=== PATIENT | female | born 1990 | race Caucasian/White ===

== ENCOUNTER 2023-12-24 08:00 | Inpatient (IN) | payer OTHER ==
[2023-12-24] MEDS: LACTATED RINGERS SOLUTION 1,000 ML/1,000 ML INFUS.BAG IV SCH (09:10)
[2023-12-24] MEDS ORDERED: OXYTOCIN 30 UNITS in 0.9% NS 30 UNIT/500 ML INFUS.BAG IVPB ONE (09:34)
[2023-12-24] MEDS: OXYTOCIN 30 UNITS in 0.9% NS 30 UNIT/500 ML INFUS.BAG IVPB SCH (09:40)
[2023-12-24 09:45] LABS: BASO % 0.1 % (0-2.0); EOS % 0.3 % (0-4.5); HEMATOCRIT 33.3 % (32.4-45.2); HEMOGLOBIN 11.2 GM/dL (10.7-15.3); LYMPH % 16.4 % (8-40); MCH 28.5 pg (25.7-33.7); MCHC 33.7 g/dl (32.0-36.0); MEAN CELL VOLUME 84.5 fl (80-96); MEAN PLT VOLUME 7.9 fl (7.5-11.1); MONO % 7.3 % (3.8-10.2); NEUT % 75.9 % (42.8-82.8); PLATELET COUNT 163 10^3/uL (134-434); RBC 3.94 M/mm3 (3.60-5.2); RDW 14.1 % (11.6-15.6); WHITE BLOOD COUNT 8.8 K/mm3 (4.0-10.0)
[2023-12-24 09:51] LABS: INR 0.93 (0.83-1.09); PROTHROMBIN TIME (PATIENT) 10.5 SEC (9.7-13.0)
[2023-12-24 09:54] LABS: ACTIVATED PTT 28.1 SECONDS (25.2-36.5)
[2023-12-24 10:17] VITALS: BMI 37.4
[2023-12-24 10:32] LABS: CALCIUM 9.1 mg/dL (8.5-10.1)
[2023-12-24 10:33] LABS: ALBUMIN 2.7 g/dl (3.4-5.0); BLOOD UREA NITROGEN 12.3 mg/dL (7-18)
[2023-12-24 10:36] LABS: CREATININE 0.5 mg/dL (0.55-1.3)
[2023-12-24 10:38] LABS: BILIRUBIN,TOTAL 0.3 mg/dL (0.2-1); TOT PROT 5.9 g/dl (6.4-8.2)
[2023-12-24] MEDS ORDERED: FENTANYL/BUPIVACAINE/NS/PF - PCEA - 50 ML DISP.SYRIN EP ONE (12:42)
[2023-12-24] MEDS ORDERED: LIDO 2%/EPI 1:200000 PRESRVFRE (20 ML SDVIAL) ONE (12:49)
[2023-12-24] MEDS ORDERED: BUPIVACAINE HCL/PF 0.25% (2.5MG/ML) 10 ML VIAL ONE (12:49)
[2023-12-24] MEDS: FENTANYL/BUPIVACAINE/NS/PF - PCEA - 50 ML DISP.SYRIN EP SCH (13:15)
[2023-12-24] MEDS ORDERED: NALOXONE HCL 0.4 MG/ML VIAL IVPUSH PRN (13:47)
[2023-12-24] MEDS ORDERED: OXYTOCIN 20 UNITS in 0.9% NS 20 UNIT/1,000 ML INFUS.BAG IV ONE (15:00)
[2023-12-24] MEDS: OXYTOCIN 20 UNITS in 0.9% NS 20 UNIT/1,000 ML INFUS.BAG IV SCH (15:31)
[2023-12-24] MEDS ORDERED: METHYLERGONOVINE MALEATE 0.2 MG/1 ML AMP IM PRN (15:50)
[2023-12-24] MEDS ORDERED: BISACODYL 10 MG SUPP.RECT RC PRN (15:50)
[2023-12-24] MEDS ORDERED: oxyCODONE HCL 5 MG TABLET PO PRN (15:50)
[2023-12-24] MEDS ORDERED: BENZOCAINE 28 GM HEMORRHOIDAL OINTMENT TP PRN (15:50)
[2023-12-24 16:01] LABS: CORD BASE EXCESS -4.1 mmol/L (0-2); CORD HCO3 21.4 mmHg (20-29); CORD PCO2 40.6 mmHg (30-78); CORD pH 7.339 (7.14-7.44)
[2023-12-24 16:03] LABS: CORD BASE EXCESS -6.4 mmol/L (0-2); CORD HCO3 22.9 mmHg (20-29); CORD pH 7.193 (7.14-7.44)
[2023-12-24] MEDS: INSULIN ASPART SLIDING SCALE (NOVOLOG) 1 VIAL SQ SCH (16:48)
[2023-12-24] MEDS: IBUPROFEN 600 MG TABLET (FP) PO PRN (17:35)
[2023-12-24] MEDS ORDERED: IBUPROFEN 600 MG TABLET (FP) PO ONE (17:36)
[2023-12-24] MEDS ORDERED: INSULIN ASPART SLIDING SCALE (NOVOLOG) 1 VIAL SQ PRN (18:00)
[2023-12-24] MEDS: ACETAMINOPHEN 325 MG TABLET (FP) PO PRN (19:19)
[2023-12-24] MEDS: WITCH HAZEL 50% (TUCKS) 40 PAD/JAR PAD TP PRN (21:30)
[2023-12-24] MEDS: BENZOCAINE 20% 57 GM BOTTLE TP PRN (22:30)
[2023-12-25] MEDS: SENNOSIDES/DOCUSATE COMBO (SENNA PLUS) TABLET (UD) PO PRN (00:05)
[2023-12-25 02:05] VITALS: RESP 18
[2023-12-25 06:57] LABS: BASO % 0.3 % (0-2.0); EOS % 0.6 % (0-4.5); HEMATOCRIT 29.3 % (32.4-45.2); HEMOGLOBIN 9.7 GM/dL (10.7-15.3); LYMPH % 15.1 % (8-40); MCH 28.5 pg (25.7-33.7); MCHC 32.9 g/dl (32.0-36.0); MEAN CELL VOLUME 86.6 fl (80-96); MONO % 6.6 % (3.8-10.2); NEUT % 77.4 % (42.8-82.8); PLATELET COUNT 145 10^3/uL (134-434); RBC 3.39 M/mm3 (3.60-5.2); RDW 14.1 % (11.6-15.6); WHITE BLOOD COUNT 9.1 K/mm3 (4.0-10.0)
[2023-12-25] MEDS: PRENATAL VITAMINS W/ FOLIC ACID TABLET (FP) PO SCH (09:48)
[2023-12-25] MEDS ORDERED: POLYETHYLENE GLYCOL (HEALTHYLAX) 3350 17 GM PACKET PO PRN (12:50)
[2023-12-25 21:23] VITALS: BP 132/73; PULSE 84; TEMP 98.4
[2023-12-25] MEDS: FERROUS SO4 325 MG TABLET (FP) PO SCH (21:29)
== END 2023-12-26 12:55 | disposition home or self-care (01) | DRG 807 ==
LOC: JLDR 08:00 → J3W 18:00
PROVIDERS: ADMIT Obstetrics & Gynecology; ATTEND Obstetrics & Gynecology
PROC: 10E0XZZ Delivery of Products of Conception, External Approach (ICD-10-PCS; principal; 2023-12-24)
PROC: 0KQM0ZZ Repair Perineum Muscle, Open Approach (ICD-10-PCS; 2023-12-24)
DX: O24.424 Gestational diabetes mellitus in childbirth, insulin controlled (principal); Z37.0 Single live birth; O99.02 Anemia complicating childbirth; D64.9 Anemia, unspecified; O70.1 Second degree perineal laceration during delivery; O69.81X0 Labor and delivery complicated by cord around neck, without compression, not applicable or unspecified; Z3A.38 38 weeks gestation of pregnancy
CPT/HCPCS: 36415; 36600; 59409; 80048; 80053; 82803; 82962; 85025; 85610; 85730; 86780; 86850; 86900; 86901